=== PATIENT | female | born 1955 ===

== ENCOUNTER → 2020-08-07 11:50 | Outpatient (CLI) | payer OTHER ==
[~2020-08-07 11:50] MED LIST: ATORVASTATIN CA40 MG; CLONAZEP PO; CLONAZEPAM1 MG; EFFESOR PO; LIPITOR PO; MIRTAZAPINE15 MG; RESTORIL30 MG; ULTRACET PO; VENLAFAXINE H37.5 M1
== END | disposition home or self-care (01) ==
LOC: EKG 11:50
PROVIDERS: ATTEND Surgery
DX: K57.20 Diverticulitis of large intestine with perforation and abscess without bleeding (principal); R10.32 Left lower quadrant pain; R19.7 Diarrhea, unspecified; Z01.810 Encounter for preprocedural cardiovascular examination

== ENCOUNTER 2020-08-08 11:30 | Inpatient (IN) | payer OTHER ==
[~2020-08-08] VITALS: Ht 160 cm; Wt 46.7 kg
[2020-08-11] MEDS ORDERED: LIPITOR PO (12:36)
[2020-08-11] MEDS ORDERED: CLONAZEP PO (12:37)
[2020-08-11] MEDS ORDERED: EFFESOR PO (12:37)
[2020-08-15] MEDS ORDERED: CLONAZEPAM1 MG (11:07)
[2020-08-15] MEDS ORDERED: VENLAFAXINE H37.5 M1 (11:07)
[2020-08-15] MEDS ORDERED: MIRTAZAPINE15 MG (11:07)
[2020-08-15] MEDS ORDERED: RESTORIL30 MG (11:07)
[2020-08-15] MEDS ORDERED: ATORVASTATIN CA40 MG (11:07)
[2020-08-24] MEDS ORDERED: ULTRACET PO (11:48)
== END 2020-08-24 13:39 | disposition home or self-care (01) | DRG 330 ==
LOC: SURG 08-15 05:54 → SURH 08-15 05:54 → O/R 08-15 05:54 → SURH 08-15 10:30 → SURG 08-18 22:35
PROVIDERS: ADMIT Surgery; ATTEND Surgery
PROC: 0DBN4ZZ Excision of Sigmoid Colon, Percutaneous Endoscopic Approach (ICD-10-PCS; 2020-08-15)
PROC: 0JNC3ZZ Release Pelvic Region Subcutaneous Tissue and Fascia, Percutaneous Approach (ICD-10-PCS; 2020-08-15)
PROC: 0DTP4ZZ Resection of Rectum, Percutaneous Endoscopic Approach (ICD-10-PCS; principal; 2020-08-15 14:15)
DX: K57.20 Diverticulitis of large intestine with perforation and abscess without bleeding (principal); N82.3 Fistula of vagina to large intestine; N73.6 Female pelvic peritoneal adhesions (postinfective)